=== PATIENT | female | born 1985 | race Caucasian/White ===

== ENCOUNTER → 2019-11-21 | Outpatient (CLI) | payer OTHER | LOC: COL.CARD 09:49 | DX: R40.4 Transient alteration of awareness (principal); G43.109 Migraine with aura, not intractable, without status migrainosus ==

== ENCOUNTER → 2019-11-27 | Outpatient (CLI) | payer OTHER | LOC: COL.RAD 11-21 09:44 | DX: G43.109 Migraine with aura, not intractable, without status migrainosus (principal); H47.10 Unspecified papilledema | CPT/HCPCS: A9585 ==

== ENCOUNTER 2019-12-25 09:14 | Outpatient (CLI) | payer OTHER ==
[~2019-12-25] VITALS: Ht 165.1 cm; Wt 102.2 kg
[~2019-12-25 09:14] MED LIST: AMBIEN 10MG10 MG PO; HYDRODIURIL50 MG PO; K-DUR 10 MEQ T10 MEQ PO; MAG-OX 400400 MG/TAB PO; VITAMIND3 5000 PO
[2019-12-25 09:28] VITALS: BP 122/74; PULSE 91
[2019-12-25 10:28] VITALS: BP 108/73; PULSE 83
[2019-12-25 10:30] VITALS: BP 108/73; PULSE 84
--- NOTE | 2019-12-25 10:30 | NUR ---
Report from Roxana HELMS. Transferred from Radiology by bed. Band-aid to lower back CD&I. VSS. Denies pain at this time
[2019-12-25 10:45] VITALS: BP 102/68; PULSE 78
[2019-12-25 11:00] VITALS: BP 104/74; PULSE 80
[2019-12-25 11:30] VITALS: BP 104/77; PULSE 89
--- NOTE | 2019-12-25 12:26 | NUR ---
Transferred private car by
[2019-12-25 12:46] LABS: CSF APPEARANCE CLEAR; CSF COLOR COLORLESS; CSF POLYMORPHONUCLEAR 0 % (0-6); CSF RBC 0 /mm3 (0-0)
[2019-12-25 12:47] LABS: CSF MONONUCLEAR 60 % (70-100)
[2019-12-25 12:49] LABS: GLUCOSE,CSF 61 mg/dL (40-70); TOTAL PROTEIN,CSF 24 mg/dL (15-45)
== END 2019-12-25 12:28 | disposition home or self-care (01) ==
LOC: COL.RAD 09:14
PROVIDERS: Nurse Practitioner
DX: H47.10 Unspecified papilledema (principal)

== ENCOUNTER 2019-12-27 09:57 | Emergency (ER) | payer OTHER ==
[~2019-12-27] VITALS: Ht 165.1 cm; Wt 100.0 kg
[2019-12-27 10:03] VITALS: TEMP 98.4
[2019-12-27 11:40] LABS: BASO # 0.1 (0.0-0.2); BASO % 0.4 % (0.0-2.0); EOS # 0.1 (0.0-0.7); EOS % 0.8 % (0-4.0); GRAN # 10.6 (1.4-6.5); GRAN % 74.7 % (42.2-75.2); HEMOGLOBIN 11.9 g/dl (12.5-16.0); LYMPH # 2.8 (1.2-3.4); LYMPH % 19.6 % (20.0-51.0); MEAN CELL VOLUME 81 fl (80.0-100.0); MEAN CORPUSCULAR HEMOGLOBIN 27 pg (27.0-31.0); MEAN CORPUSCULAR HGB CONC 33 g/dl (33.0-37.0); MEAN PLATELET VOLUME 9.7 fl (7.4-10.4); MONO # 0.6 (0.1-0.6); MONO % 4.1 % (1.7-9.3); PLATELET COUNT 372 K/mm3 (130-400); RED BLOOD COUNT 4.43 M/mm3 (4.10-5.30)
[2019-12-27 11:42] LABS: HEMATOCRIT 35.9 % (37.0-47.0)
[2019-12-27 11:54] LABS: STREP SCREEN NEGATIVE
[2019-12-27] MEDS ORDERED: CLEOCIN HCL300 MG PO (12:27)
[2019-12-27] MEDS ORDERED: NORCO 325 MG-51 TAB PO (12:29)
[2019-12-27 12:45] VITALS: BP 120/82; PULSE 96
== END 2019-12-27 12:46 | disposition home or self-care (01) ==
LOC: COL.ER 09:57
PROVIDERS: Physician Assistant
DX: J03.90 Acute tonsillitis, unspecified (principal); G43.909 Migraine, unspecified, not intractable, without status migrainosus
CPT/HCPCS: J1100; J2270; J2405; J7030

== ENCOUNTER 2021-04-10 12:39 | Outpatient (CLI) | payer OTHER ==
[~2021-04-10] VITALS: Ht 165.1 cm; Wt 108.2 kg
[~2021-04-10 12:39] MED LIST changes: +CLEOCIN HCL300 MG PO; +NORCO 325 MG-51 TAB PO; +XANAX 0.5MG0.5 MG PO
[2021-04-10 13:12] VITALS: BP 139/93; PULSE 89; TEMP 99
[2021-04-10 15:15] VITALS: BP 123/80; PULSE 85
[2021-04-10 15:30] VITALS: BP 124/74; PULSE 84
[2021-04-10 15:37] LABS: GLUCOSE,CSF 58 mg/dL (40-70)
[2021-04-10 15:45] VITALS: BP 117/90; PULSE 80
[2021-04-10 16:00] VITALS: BP 124/74; PULSE 90
[2021-04-10 16:28] LABS: CSF APPEARANCE CLEAR; CSF COLOR COLORLESS; CSF POLYMORPHONUCLEAR 0 % (0-6); CSF RBC 1 /mm3 (0-0)
[2021-04-10 16:29] LABS: CSF MONONUCLEAR 100 % (70-100)
[2021-04-10 16:40] VITALS: BP 116/70; PULSE 89
== END 2021-04-10 16:50 | disposition home or self-care (01) ==
LOC: COL.RAD 12:39
PROVIDERS: Nurse Practitioner
DX: H47.10 Unspecified papilledema (principal); G43.709 Chronic migraine without aura, not intractable, without status migrainosus

== ENCOUNTER → 2021-05-06 | Outpatient (CLI) | payer OTHER | LOC: COL.VAS 13:59 | DX: R06.02 Shortness of breath (principal) ==

== ENCOUNTER → 2021-08-28 | Outpatient (CLI) | payer OTHER | LOC: COL.PUL 08-21 13:00 | DX: R06.02 Shortness of breath (principal) | CPT/HCPCS: J7674 ==

== ENCOUNTER 2021-11-16 06:30 | Day surgery (SDC) | payer OTHER ==
[~2021-11-16] VITALS: Ht 165.1 cm; Wt 98.1 kg
[~2021-11-16 06:30] MED LIST changes: +AMBIEN CR 12.12.5 MG PO; +PRILOSEC 20MG20 MG PO; +PROMETHAZINE12.5 M5 PO; +PROTONIX 40MG T40 MG PO; +ZOFRAN ODT4 MG PO
[2021-11-16 07:35] VITALS: BP 112/73; PULSE 90; TEMP 98.1
[2021-11-16] MEDS ORDERED: CARAFATE 1GM1 G PO (08:12)
[2021-11-16 08:15] VITALS: BP 110/70; PULSE 86; TEMP 97.7
[2021-11-16 08:30] VITALS: BP 109/74; PULSE 74
[2021-11-16 08:43] VITALS: BP 105/72
--- NOTE | 2021-11-16 09:00 | NUR ---
0815 Pt returns from endo procedure via cart and RN assist to [facility] [place] [facility]. Monitors on and alarms set. Call light within reach. Report received from ANALIA Knowles. Pt alert and oriented. Pt requests water only. Pt denies any pain or nausea. 0825 Pt taking drink well. No complications noted. 0850 Discharge instructions given to pt and pt's . All questions answered to their satisfaction. Handed to pt are a thank you card and discharge information. 0900 Pt transferred out of the hospital via wheelchair and this RN assist, to private vehicle driven by pt's .
== END 2021-11-16 09:00 | disposition home or self-care (01) ==
LOC: SDCO 06:30
DX: K20.90 Esophagitis, unspecified without bleeding (principal); E66.9 Obesity, unspecified; K29.30 Chronic superficial gastritis without bleeding
CPT/HCPCS: J2704